=== PATIENT | male | born 1990 | race Asian ===

== ENCOUNTER 2025-08-22 02:12 | Emergency (ER) | payer BC ==
[2025-08-22] MEDS: Ketorolac 30 MG/ML SDV IM ONE (02:57)
[2025-08-22 02:58] LABS: BLOOD UREA NITROGEN,BUN 16 mg/dL (7-18); CARBON DIOXIDE,CO2 26 mmol/L (21-32); CHLORIDE,CL 105 mmol/L (100-110); CREATININE 1.0 mg/dL (0.70-1.30); EST CRCL DRUG DOSING (CG) 91.27 mL/min; ESTIMATED GFR 99 mL/min (>60); GLUCOSE RANDOM 88 mg/dL (80-116); POTASSIUM,K 4.0 mmol/L (3.5-5.3); SODIUM,NA 141 mmol/L (135-145)
[2025-08-22 03:04] LABS: A/G RATIO 1.0; ALANINE AMINOTRANSFERASE,ALT 29 U/L (12-36); ASPARTATE AMNIOTRANSFERASE,AST 23 IU/L (5-25); BASOPHILS ABSOLUTE AUTO 0.1 x10-3/uL (0.0-0.3); BASOPHILS PERCENT AUTO 1.1 % (0.3-3.8); BILIRUBIN TOTAL 0.6 mg/dL (0.1-1.3); EOSINOPHILS ABSOLUTE AUTO 0.1 x10-3/uL (0.0-0.6); EOSINOPHILS PERCENT AUTO 2.4 % (0.1-6.8); LYMPHOCYTES ABSOLUTE AUTO 2.6 x10-3/uL (0.5-4.5); LYMPHOCYTES PERCENT AUTO 48.5 % (15.8-45.3); MEAN PLATELET VOLUME 7.8 fL (6.7-11.0); MONOCYTES ABSOLUTE AUTO 0.4 x10-3/uL (0.0-1.2); MONOCYTES PERCENT AUTO 7.8 % (5.5-15.2); NEUTROPHILS ABSOLUTE AUTO 2.1 x10-3/uL (1.7-6.9); NEUTROPHILS PERCENT AUTO 40.2 % (40.3-71.8); PLATELET COUNT,PLT 262 x10(3)uL (117-477); PROTEIN TOTAL,TP 7.9 g/dL (6.0-8.0); RED BLOOD CELL COUNT 5.11 x10(6)uL (3.90-5.90); RED CELL DISTRIBUTION WIDTH 13.8 % (12.4-15.0); WHITE BLOOD CELL COUNT,WBC 5.3 x10-3/uL (3.2-10.1)
== END 2025-08-22 04:15 | disposition home or self-care (01) ==
LOC: FB.ED 02:12
DX: R09.1 Pleurisy (principal); E04.1 Nontoxic single thyroid nodule; R91.1 Solitary pulmonary nodule; Z79.899 Other long term (current) drug therapy; Z87.891 Personal history of nicotine dependence
CPT/HCPCS: 36415; 71250; 80053; 83690; 85025; 86140; 96372; 99285; J1885